=== PATIENT | female | born 1930 | race Caucasian/White ===

== ENCOUNTER 2018-06-08 23:38 | Inpatient (IN) | payer MEDICARE, MEDICAID ==
--- NOTE | 2018-06-08 23:51 | ED Physician Chart ---
ED Chief Complaint/HPI - Patient Information Date Seen:: 06/08/18 Time Seen:: 23:40 Chief Complaint:: refusing care History of Present Illness:: Condition at her extended care facility has been refusing to shower and is selective in the medication she takes. She is also been exhibiting aggressive behavior. Historian:: Patient Review:: Transfer documents Reviewed ED Review of Systems - Review of Systems General/Constitutional: No fever, No chills, No weight loss, No weakness, No diaphoresis, No edema, No loss of appetite Skin: No skin lesions, No rash, No bruising Head: No headache, No light-headedness Eyes: No loss of vision, No pain, No diplopia ENT: No earache, No nasal drainage, No sore throat, No tinnitus Neck: No neck pain, No swelling, No thyromegaly, No stiffness, No mass noted Cardio Vascular: No chest pain, No palpitations, No PND, No orthopnea, No edema Pulmonary: No SOB, No cough, No sputum, No wheezing GI: No nausea, No vomiting, No diarrhea, No pain, No melena, No hematochezia, No constipation, No hematemesis G/U: No dysuria, No frequency, No hematuria Musculoskeletal: No bone or joint pain, No back pain, No muscle pain Endocrine: No polyuria, No polydipsia Psychiatric: No prior psych history, No depression, No anxiety, No suicidal ideation Hematopoietic: No bruising, No lymphadenopathy Allergic/Immuno: No urticaria, No angioedema Neurological: No syncope, No focal symptoms, No weakness, No paresthesia, No headache, No seizure, No dizziness, No confusion, No vertigo ED Past Medical History - Past Medical History Past Medical History: CAD, Asthma/COPD, PUD/GERD, Thyroid disorder, Dementia, Other (hypothyroidism) Family History: Other (unavailable) Social History: Care Facility Surgical History: other (unknown) Psychiatricy History: Dementia ED Physical Exam - Physical Examination General/Constitutional: Awake, Well-developed, well-nourished, Alert, No distress Head: Atraumatic Eyes: Lids, conjuctiva normal, PERRL Skin: Nl inspection, No rash, No skin lesions, No ecchymosis ENMT: External ears, nose nl Other ENMT comments:: Poor dental hygiene Neck: No nuchal rigidity Respiratory: Nl effort/Exclusion, Clear to Auscultation, No Wheeze/Rhonchi/Rales Cardio Vascular: RRR, No murmur, gallop, rubs, NL S1 S2 GI: No tenderness/rebounding/guarding, No organomegaly, No hernia, Normal BS's Extremities: Normal digits & nails Neuro/Psych: No focal deficits ED Labs/Radiology/EKG Results - Lab Results Comments:: Abnormal Lab Results 06/09/18 06/09/18 00:10 00:10 WBC 7.9 RBC 4.54 Hgb 13.2 Hct 40.2 L MCV 88.6 MCH 29.1 MCHC Differential 32.8 RDW 12.3 Plt Count 182 MPV 9.7 Neutrophils % 69.6 Lymphocytes % 18.3 L Monocytes % 9.8 Eosinophils % 2.2 Basophils % 0.1 Sodium 139 Potassium 3.9 Chloride 102 Carbon Dioxide 29.0 Anion Gap 11.9 BUN 14 Creatinine 0.6 Est GFR ( Amer) TNP Est GFR (Non-Af Amer) TNP BUN/Creatinine Ratio 23.3 Glucose 105 Calcium 9.9 Total Bilirubin 1.6 H AST 12 L ALT 9 Alkaline Phosphatase 52 Total Protein 6.7 Albumin 3.7 Globulin 3.0 Albumin/Globulin Ratio 1.2 Triglycerides 69 Cholesterol 130 LDL Cholesterol Direct 78 HDL Cholesterol 49 - Radiology Results Results: Abnormal Lab Results 06/09/18 00:10 WBC 7.9 RBC 4.54 Hgb 13.2 Hct 40.2 L MCV 88.6 MCH 29.1 MCHC Differential 32.8 RDW 12.3 Plt Count 182 MPV 9.7 Neutrophils % 69.6 Lymphocytes % 18.3 L Monocytes % 9.8 Eosinophils % 2.2 Basophils % 0.1 - EKG Interpretations Rate & Rhythm: normal sinus rhythm with a rate of 79 Henderson: normal Comments:: 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
[2018-06-09 00:26] LABS: % BASOPHILS 0.1 % (0.0-2.0); EOSINOPHILE ABSOLUTE 0.2 Th/cmm (0.1-0.4); HEMOGLOBIN 13.2 gm/dL (12-16); MEAN PLATELET VOLUME 9.7 fl
[2018-06-09 00:28] LABS: % EOSINOPHILS 2.2 % (0.0-5.0); % LYMPHOCYTES 18.3 % (20.0-50.0); % MONOCYTES 9.8 % (2.0-10.0); % NEUTROPHILS 69.6 % (40.0-80.0); HEMATOCRIT 40.2 % (41.0-60); LYMPHOCYTE ABSOLUTE 1.4 Th/cmm (1.5-3.0); MEAN CELL VOLUME 88.6 fl (81-100); MEAN CORPUSCULAR HEMOGLOBIN 29.1 pg (27.0-31.0); MEAN CORPUSCULAR HGB CONC 32.8 pg (28.0-36.0); MONOCYTE ABSOLUTE 0.8 Th/cmm (0.3-1.0); NEUTROPHILE ABSOLUTE 5.5 Th/cmm (1.8-8.0); PLATELET COUNT 182 Th/cmm (150-400); RED BLOOD COUNT 4.54 Mil/cmm (3.80-5.20); RED CELL DISTRIBUTION WIDTH 12.3 % (11.5-20.0); WHITE BLOOD COUNT 7.9 Th/cmm (4.8-10.8)
[2018-06-09 00:37] LABS: ALB/GLOB RATIO 1.2 (1.0-1.8); ALBUMIN 3.7 gm/dL (3.7-5.3); ALKALINE PHOSPHATASE 52 U/L (34-104); ANION GAP 11.9 (7.0-16.0); BILIRUBIN,TOTAL 1.6 mg/dL (0.3-1.0); BUN - UREA NITROGEN 14 mg/dL (7-25); CALCIUM SERUM 9.9 mg/dL (8.6-10.3); CHLORIDE 102 mEq/L (98-107); CHOLESTEROL 130 mg/dL (<200); CREATININE - SERUM 0.6 mg/dL (0.6-1.2); GLUCOSE 105 mg/dL (70-105); HDL -HIGH DENSITY LIPOPROTEIN 49 mg/dL (23-92); POTASSIUM SERUM 3.9 mEq/L (3.5-5.1); SGOT 12 U/L (13-39); SGPT/ALT 9 U/L (7-52); SODIUM SERUM 139 mEq/L (136-145); TOTAL PROTEIN,SERUM 6.7 gm/dL (6.0-8.3); TRIGLYCERIDES 69 mg/dL (<150)
[2018-06-09] MEDS ORDERED: Maalox 30 mL Cup PO PRN (14:11)
[2018-06-09] MEDS ORDERED: Albuterol/Ipratropium Neb 3 ML AERS HHN PRN (19:28)
--- NOTE | 2018-06-10 03:46 | Psychiatric Evaluation ---
DATE OF SERVICE: 06/09/2018 PSYCHIATRIC EVALUATION IDENTIFYING DATA: The patient is an 87-year-old woman, resident of a [facility]. Information obtained by directly interviewing the patient as well as reviewing the admission papers. JUSTIFICATION OF HOSPITALIZATION: The patient is admitted here on a voluntary basis in view of her acute agitation. CHIEF COMPLAINT: "I don't know, you tell me." HISTORY OF PRESENT ILLNESS: This is the first psychiatric hospitalization to [facility] for this patient who is reported to have been agitated and has been screaming and yelling and hence the patient has to be admitted over here for stabilization. Staff was spoken to. The patient is interviewed and feeling the patient is primarily Mauritian speaking and has not been able to provide much of information, but has been getting easily irritable and angry. The patient's sleep and appetite prior to the hospitalization are reported to be very poor. Coping skills are also noted to be very poor. Review of the chart indicated that the patient has not been on any psychotropic medications and the patient at the time of the evaluation has been getting easily upset. PAST PSYCHIATRIC HISTORY: None. MEDICAL HISTORY: Physical examination is requested to be done by Dr. Lua. SUBSTANCE ABUSE HISTORY: None. PHYSICAL OR SEXUAL ABUSE HISTORY: None. LEGAL PROBLEMS: None at this time. STRENGTH AND ASSETS: The patient is motivated. MENTAL STATUS EXAMINATION: The patient is an 87-year-old woman looking her stated age. Coping skills at this time are noted to be very poor. Insight and judgment are also noted very much impaired. The patient has been having difficult time to cope with the stress. The patient is paranoid. The patient has short-term as well as long-term memory deficits. The patient is reporting that she has not been able to sleep and patient ____ on consultation, noted to be poor. The patient's short and long-term are also noted to be very poor. The patient's behavior is likely a danger to others. DIAGNOSTIC IMPRESSION: AXIS I: Psychotic disorder, not otherwise specified. IB: Dementia and behavioral change, secondary trait. AXIS II: None. AXIS III: As per Dr. Lua. IMMEDIATE TREATMENT PLAN: The patient is going to be observed on inpatient unit, provided with supportive psychotherapy. The patient is going to be closely monitored. Encouraged to verbalize the concerns rather than to act out. Once stabilized, [facility] basis. JOB# [id number]
[2018-06-10] MEDS: Pantoprazole 40 mg EC Tab PO SCH (06:34)
[2018-06-10] MEDS: Levothyroxine 0.1 Mg Tab PO SCH (06:34)
--- NOTE | 2018-06-10 18:45 | Consultation ---
DATE OF CONSULTATION: 06/10/2018 REFERRING PHYSICIAN: Opal Woodward M.D. TYPE OF CONSULTATION: Psychology. HISTORY OF PRESENT ILLNESS: The patient is an 87-year-old female. The patient is a resident of [facility]. The patient is being admitted due to acute agitation. Upon interview, the patient reports that she does not know why she is being hospitalized. The following is by record review. The patient was reported to have had screaming and yelling episodes and had become very agitated according to the staff at the patient's facility. The patient is primarily Upper Sorbian speaking and a Upper Sorbian speaking staff member was present to assist in interpretation. The patient seems to be confused and is not answering the questions relevantly according to the interpreter deaf. The patient denied any suicidal ideation, plan or intention. The patient seems to be easily upset and frustrated. PAST MEDICAL HISTORY: Please see history and physical by Dr. Lua. PAST PSYCHIATRIC HISTORY: Records are unavailable. Details are unknown. SUBSTANCE ABUSE HISTORY: The patient did not answer these questions. PSYCHOSOCIAL HISTORY: The patient did not answer questions about occupational or educational history or alevism affiliation. She did not answer questions about history or physical or sexual abuse or current legal problems. The patient did not answer questions about family members involved in her care. MENTAL STATUS EXAMINATION: The patient appears to be her stated age. Attitude is guarded and generally dismissive. Eye contact is fair to poor. Speech is spontaneous. Mood is frustrated and irritable. Affect is mood congruent. The patient denied any suicidal ideation, plan, or intention. She denied any auditory or visual hallucinations. There is evidence of some paranoid ideation. The patient's behavior is easily agitated. Impulse control is inadequate. Concentration is poor. The patient did not participate in the memory assessment. Immediate memory and short term memory appear to be impaired. Sensorium is alert and oriented to self only. The patient did not participate in the interpretation of proverbs. Insight is impaired. Judgment is compromised. DIAGNOSTIC IMPRESSION: AXIS I: 1. Psychotic disorder, not otherwise specified. 2. Dementia with behavioral disturbance. AXIS II: Deferred. AXIS III: Per Dr. Lua. TREATMENT PLAN: The patient has been seen by Dr. Woodward for psychiatric evaluation and for the management of the patient's psychotropic medications. We will provide supportive psychotherapy to include reality orientation, differentiation, and integration. We will provide limit setting and de-escalation. We will provide stress management to assist the patient in increasing her frustration tolerance. We will provide motivational enhancement for the patient to become compliant and stay compliant with all aspects of her care and treatment. We will encourage the patient to verbalize her concerns versus acting out and to also be able to demonstrate emotional and self-regulation prior to her discharge. Thank you, Dr. Woodward, for this consult and the opportunity to participate in this patient's care. JOB# [id number] LATOYA
--- NOTE | 2018-06-10 20:10 | History & Physical ---
ADMIT DATE: 06/09/2018 INTERNAL MEDICINE CONSULTATION HISTORY OF PRESENT ILLNESS: The patient is an 87-year-old patient of mine me being the PCP. MEDICAL PROBLEMS: Include COPD, hypothyroid, coronary artery disease, peptic ulcer disease, gastritis, arthritis, osteoporosis, dementia. SOCIAL HISTORY: No smoking or alcohol use. OBSTETRIC HISTORY: P2+0, menses are postmenopausal. REVIEW OF SYSTEMS: No vomiting or diarrhea, no melena, no hematochezia. PHYSICAL EXAMINATION: GENERAL: Elderly female, in obvious respiratory distress. VITAL SIGNS: Include a blood pressure 140/80, heart rate 80, respiration rate of 18. SKIN: Show no cellulitis. HEENT: Normal conjunctivae. NECK: Supple. LUNGS: Show occasional rhonchi, occasional crepitation, no bronchial breathing. HEART: First and second heart sound normal. ABDOMEN: Soft, bowel sounds present. EXTREMITIES: Show arthritis. NEUROLOGIC: The patient has dementia. LABS: Include white count 7.9, hemoglobin 13.2, hematocrit 40.2, platelet count of 182. Sodium 139, potassium 3.9, chloride 102, bicarbonate 29, BUN 14, creatinine 0.6, blood sugar 105. LFTs are normal. ADMITTING MEDICAL DIAGNOSES: Chronic obstructive pulmonary disease, hypertension, no hypothyroidism, coronary artery disease, peptic ulcer disease, arthritis, osteoporosis. CURRENT MEDICATIONS: Include Mylanta, DuoNeb, levothyroxine. Rest of medicines as per psychiatrist. JOB# [id number]
--- NOTE | 2018-06-10 20:13 | Progress Notes ---
DATE: 06/10/2018 INTERNAL MEDICINE CONSULTATION FOLLOWUP SUBJECTIVE: The patient is an 87-year-old female. Current medical problems include COPD, hypothyroid, coronary artery disease, peptic ulcer disease, arthritis, osteoporosis. No new symptoms. OBJECTIVE: VITAL SIGNS: Stable. LUNGS: Show occasional rhonchi, occasional crepitation, no bronchial breathing. HEART: First and second heart sound normal. No gallop. Systolic present. ABDOMEN: Soft, bowel sounds present. EXTREMITIES: Show arthritis. NEUROLOGIC: The patient has dementia. PLAN: Continue current medical management. Psych consult reviewed. JOB# [id number]
--- NOTE | 2018-06-11 02:11 | Progress Notes ---
DATE: 06/10/2018 SUBJECTIVE: Staff was spoken to. The patient is interviewed. Mood is noted to be irritable. Affect is constricted. Insight and judgment are noted to be still impaired. Impulse control is noted to be poor. Coping skills are noted to be very poor. The patient is refusing to comply with the treatment. The patient is spoken to through some Wolof speaking interpreters, but the patient has been stating that she does not know what they are talking. The patient has been very resistive. ASSESSMENT: The patient is still psychotic and impulsive. PLAN: To continue the patient with supportive therapy and follow up. JOB# [id number]
[2018-06-11] MEDS: Pantoprazole 40 mg EC Tab PO SCH (06:33)
[2018-06-11] MEDS: Levothyroxine 0.1 Mg Tab PO SCH (06:33)
--- NOTE | 2018-06-11 10:16 | Progress Notes ---
DATE: 06/11/2018 INTERNAL MEDICINE CONSULTATION FOLLOWUP SUBJECTIVE: This is an 87-year-old female. Current medical problems include COPD, hypothyroidism, coronary artery disease, peptic ulcer disease, arthritis, osteoporosis. No new symptoms. OBJECTIVE: VITAL SIGNS: Stable. LUNGS: Show occasional rhonchi, occasional crepitation, no bronchial breathing. HEART: First and second heart sound normal. Systolic present. ABDOMEN: Soft. Bowel sounds are present and good. EXTREMITIES: Show arthritis. NEUROLOGIC: The patient has no focal deficit. Continue current medical management. Psych consult reviewed. JOB# [id number]
--- NOTE | 2018-06-11 12:16 | Progress Notes ---
DATE: 06/11/2018 SUBJECTIVE: Staff was spoken to. The patient is interviewed. Mood is noted to be irritable. Affect is constricted. Insight and judgment are very impaired. Impulse control is noted to be limited. Coping skills also to be limited. The patient has been having difficult time to cope with the stress. The patient is screaming and yelling and stating that she does not need any medication. The patient has been very paranoid, in view of that, it is decided to go with the Haldol and the patient refuses. Plan to give the medication IM. ASSESSMENT: The patient is still impulsive. PLAN: To continue the patient with the supportive therapy, I encouraged the patient to verbalize the concerns rather than to act out. JOB# [id number]
[2018-06-12] MEDS: Levothyroxine 0.1 Mg Tab PO SCH (06:40)
[2018-06-12] MEDS: Pantoprazole 40 mg EC Tab PO SCH (06:40)
[2018-06-13] MEDS: Levothyroxine 0.1 Mg Tab PO SCH ×3 (06:30→09:02)
[2018-06-13] MEDS: Pantoprazole 40 mg EC Tab PO SCH ×2 (06:30→06:37)
--- NOTE | 2018-06-13 08:06 | Progress Notes ---
DATE: 06/12/2018 INTERNAL MEDICINE CONSULTATION FOLLOWUP SUBJECTIVE: The patient is an 87-year-old female. Current medical problems include COPD, hypothyroidism, coronary artery disease, peptic ulcer disease, arthritis, osteoporosis. No new symptoms. OBJECTIVE: VITAL SIGNS: Stable. LUNGS: Show occasional rhonchi, occasional crepitation, no bronchial breathing. HEART: First and second heart sound normal. Systolic present. ABDOMEN: Soft. Bowel sounds are present and good. EXTREMITIES: Show arthritis. NEUROLOGICAL: The patient has dementia. PLAN: Continue current medical management. Psych consult reviewed. JOB# [id number]
--- NOTE | 2018-06-13 08:30 | Progress Notes ---
DATE: 06/12/2018 SUBJECTIVE: Staff was spoken to. The patient is interviewed. Mood is noted to be irritable. Affect is constricted. Insight and judgment at this time are noted to be still impaired. Impulse control is noted to be limited. The patient has been having difficult time to cope with the stress. The patient has been reluctant to comply with the medication, but with detailed explanation the patient has been willing to take the medication. No side effects to the medications are noted at this time. PLAN: To closely monitor the patient and followup. JOB# [id number]
--- NOTE | 2018-06-13 16:03 | Progress Notes ---
DATE: 06/13/2018 SUBJECTIVE: Staff was spoken to. The patient is interviewed. Mood is noted to be less irritable today. Insight and judgment noted to be improving. Impulse control seems to be fair. No side effects to the medications are noted. The patient, however, is noted to be demented and needs to be redirected when needs to take the medications. The patient has no insight into her illness. ASSESSMENT: The patient is still impulsive, aggressive behavior has been, however, coming down. PLAN: To continue the patient with the current medications and followup. JOB# [id number]
--- NOTE | 2018-06-13 21:26 | Progress Notes ---
DATE: 06/13/2018 INTERNAL MEDICINE CONSULTATION FOLLOWUP SUBJECTIVE: The patient is an 87-year-old female. Current medical problems include COPD, hypothyroidism, coronary artery disease, peptic ulcer disease, gastritis, arthritis, and osteoporosis. No new symptoms. OBJECTIVE: VITAL SIGNS: Stable. LUNGS: Show occasional rhonchi, occasional crepitation. No bronchial breathing. HEART: First and second heart sounds normal. Systolic present. ABDOMEN: Soft, bowel sounds present. EXTREMITIES: Show arthritis. NEUROLOGIC: The patient has no focal motor deficit. PLAN: Continue current medical management. Psych consult reviewed. JOB# [id number]
--- NOTE | 2018-06-14 01:55 | Progress Notes ---
DATE: 06/12/2018 SUBJECTIVE: The patient is seen and interviewed. The patient presents as irritable. The patient has poor insight. Impulse control continues to be problematic. The patient is having a difficult time coping. The staff reports the patient has been intermittently refusing medication. OBJECTIVE: Mood irritable. Affect constricted. Thought process shows to be confused. The patient denies hallucinations or delusions. The patient's behavior has been intermittently noncompliant with care and more specifically the patient's medication protocol. ASSESSMENT AND PLAN: We provided remotivation for the patient to become compliant to stay compliant with all aspects of care and treatment. We encouraged the patient to be able to accept the patient's current circumstances. We provided stress management to increase the patient's frustration tolerance. We continued to encourage the patient to demonstrate and self regulation. We will follow up in 2 to 3 days to continue present treatment. JOB# [id number] [email or web address]
[2018-06-14] MEDS: Levothyroxine 0.1 Mg Tab PO SCH (06:33)
[2018-06-14] MEDS: Pantoprazole 40 mg EC Tab PO SCH (06:33)
--- NOTE | 2018-06-14 22:43 | Progress Notes ---
DATE: 06/14/2018 PSYCHIATRIC PROGRESS NOTE SUBJECTIVE: Staff was spoken to. The patient is interviewed. Mood is noted to be dysphoric. The patient is isolative and withdrawn. Insight and judgment are noted to be still impaired. Impulse control seems to be improving. Seroquel that is being offered at 25 mg at bedtime. No major behavioral problems are reported today. ASSESSMENT: The patient is still paranoid. PLAN: To continue the patient with the supportive therapy and followup. JOB# [id number]
[2018-06-15] MEDS: Levothyroxine 0.1 Mg Tab PO SCH (06:31)
[2018-06-15] MEDS: Pantoprazole 40 mg EC Tab PO SCH (06:31)
--- NOTE | 2018-06-15 18:15 | Progress Notes ---
DATE: 06/15/2018 SUBJECTIVE: The patient is seen and interviewed. Mood is dysphoric. The patient appears to be withdrawn. The patient stated that she is taking her medication; however, the patient still believes that people are against her. Paranoid ideation persists. The staff reports no major behavioral problems and that the patient is generally compliant with her care and treatment. OBJECTIVE: Mood: dysthymic. Affect: mood congruent. The patient's behavior is isolative and withdrawn. The patient denied any delusions or hallucinations. The patient is generally compliant with her care and treatment plan. ASSESSMENT AND PLAN: The patient continues to exhibit paranoid ideation. We will continue to provide reality orientation, differentiation, and integration. We will provide remotivation for the patient to stay compliant with all aspects of her care and treatment. We will provide coping strategies for phase of life issues as well as chronic severe mental illness. We will follow up in 2 to 3 days to continue present treatment. JOB# [id number] LATOYA
--- NOTE | 2018-06-15 23:16 | Progress Notes ---
DATE: 06/15/2018 INTERNAL MEDICINE CONSULTATION FOLLOWUP SUBJECTIVE: The patient is an 87-year-old female. Current medical problems include COPD, hypertension, coronary artery disease, peptic ulcer disease, gastritis, arthritis, osteoporosis. No new symptoms. OBJECTIVE: VITAL SIGNS: Stable. LUNGS: Show occasional rhonchi, occasional crepitation, no bronchial breathing. HEART: First and second heart sound normal. Systolic present. ABDOMEN: Soft. Bowel sounds are present and good. EXTREMITIES: Show arthritis. NEUROLOGIC: The patient has dementia. No new complaint. Continue current medical management. Psych consult reviewed. JOB# [id number]
--- NOTE | 2018-06-16 00:45 | Progress Notes ---
DATE: 06/15/2018 PSYCHIATRIC PROGRESS NOTE SUBJECTIVE: Staff was spoken to. The patient is interviewed. Mood is noted to be less irritable. The patient has started to participate in the groups. Insight and judgment are noted to be still impaired. Impulse control seems to be improving. The patient is not able to care for self and she is not able to decide for herself what she needs to do. The patient needs to be encouraged to comply with the treatment. ASSESSMENT: At this time, the patient is still presenting as a threat to self and others. PLAN: To continue the patient with supportive therapy and follow up. JOB# [id number]
[2018-06-16] MEDS: Levothyroxine 0.1 Mg Tab PO SCH (06:37)
[2018-06-16] MEDS: Pantoprazole 40 mg EC Tab PO SCH (06:37)
--- NOTE | 2018-06-16 20:06 | Progress Notes ---
DATE: 06/16/2018 INTERNAL MEDICINE CONSULTATION SUBJECTIVE: The patient is an 87-year-old female with past medical history of COPD, hypothyroidism, peptic ulcer disease, gastritis, arthritis, osteoporosis. OBJECTIVE: VITAL SIGNS: Stable. LUNGS: Clear. HEART: First and second heart sounds are normal. ABDOMEN: Soft. Bowel sounds are good. EXTREMITIES: Show arthritis. NEUROLOGIC: The patient has dementia. PLAN: Continue current medical management. Psych consult reviewed. JOB# [id number]
--- NOTE | 2018-06-17 01:47 | Progress Notes ---
DATE: 06/16/2018 SUBJECTIVE: Staff was spoken to. The patient is interviewed. Mood is noted to be anxious. Affect is appropriate. Insight and judgment are improving. Impulse control seems to be improving. The patient, however, with the great difficulty has been willing to comply with the medications. No side effects to the medications are noted so far. ASSESSMENT: The patient is still paranoid. PLAN: To continue the patient with the current medications and follow. JOB# [id number]
[2018-06-17] MEDS: Levothyroxine 0.1 Mg Tab PO SCH (06:50)
[2018-06-17] MEDS: Pantoprazole 40 mg EC Tab PO SCH (06:50)
--- NOTE | 2018-06-18 00:32 | Progress Notes ---
DATE: 06/17/2018 SUBJECTIVE: The patient is seen and interviewed. The patient presents as somewhat anxious and patient is speaking Upper Sorbian only. This movie writer requested the presence of a Upper Sorbian speaking CAMPGROUND CARETAKER as well as the charge nurse to be able to assist in interpretation. The staff indicates the patient's impulse control is improving; however, the patient is intermittently compliant with the medications. OBJECTIVE: Mood anxious and frustrated. Affect, mood congruent and reactive. Thought process shows to be confused at times and tangential; however, the patient is able to respond to cognitive redirection and understand the staff. The patient denied any auditory or visual hallucinations or delusions. The patient's behavior is less impulsive. ASSESSMENT AND PLAN: There is some paranoid ideation still present. The patient is having difficulty trusting the staff as well as the providers and is reluctant to follow through with some of the treatment goals and protocols. We provided remotivation for the patient to become compliant and stay compliant with all aspects of her care and treatment. We provided coping strategies for phase of life issues. We encouraged the patient to follow through with staff direction and be able to demonstrate emotional and self-regulation prior to her discharge. We will follow up in 2-3 days to continue present treatment if the patient remains admitted on the unit. JOB# [id number] LATOYA
--- NOTE | 2018-06-18 00:51 | Progress Notes ---
DATE: 06/17/2018 SUBJECTIVE: Staff was spoken to. The patient is interviewed. Mood is noted to be less irritable. Affect is appropriate. Not suicidal or homicidal. The patient has been on and off with regards to the compliance with the medications. No major behavioral problems are noted. Insight and judgment are noted to be still impaired. Coping skills are noted to be, however, improving. Sleep and appetite are also noted to be fair. No side effects to the medications are noted. ASSESSMENT: The patient's impulsivity is coming under control. PLAN: To continue the patient with the supportive therapy and follow up. JOB# [id number]
--- NOTE | 2018-06-18 00:53 | Progress Notes ---
DATE: 06/17/2018 SUBJECTIVE: The patient is an 87-year-old female. Current medical problems include COPD, hypothyroidism, coronary artery disease, peptic ulcer disease, gastritis, arthritis, osteoporosis. No new symptoms. OBJECTIVE: VITAL SIGNS: Stable. LUNGS: Show occasional rhonchi, occasional crepitation, no bronchial breathing. HEART: First and second heart sounds are normal. Systolic present. ABDOMEN: Soft. Bowel sounds good. EXTREMITIES: Show arthritis. NEUROLOGIC: The patient has no focal deficit. Continue current medical management. Awaiting discharge planning. JOB# [id number]
[2018-06-18] MEDS: Pantoprazole 40 mg EC Tab PO SCH (06:38)
[2018-06-18] MEDS: Levothyroxine 0.1 Mg Tab PO SCH (06:38)
--- NOTE | 2018-06-18 21:01 | Progress Notes ---
DATE: 06/18/2018 SUBJECTIVE: Staff was spoken to. The patient is interviewed. Mood is noted to be anxious. Affect is appropriate. The patient is not suicidal or homicidal. Insight and judgment are noted to be improving. Impulse control seems to be fair. Coping skills are also noted to be fair. The patient is willing to comply with the treatment and hence it is decided to discharge the patient today for followup on an outpatient basis. [facility]# [id number]
== END 2018-06-18 13:45 | DRG 885 ==
LOC: ER 23:38 → GERO 06-09 07:50
PROVIDERS: ADMIT Psychiatry & Neurology Psychiatry; ATTEND Psychiatry & Neurology Psychiatry
DX: F29 Unspecified psychosis not due to a substance or known physiological condition (principal); F03.91 Unspecified dementia, unspecified severity, with behavioral disturbance; J44.9 Chronic obstructive pulmonary disease, unspecified; I25.10 Atherosclerotic heart disease of native coronary artery without angina pectoris; M81.0 Age-related osteoporosis without current pathological fracture; K27.9 Peptic ulcer, site unspecified, unspecified as acute or chronic, without hemorrhage or perforation; M19.90 Unspecified osteoarthritis, unspecified site; K21.9 Gastro-esophageal reflux disease without esophagitis; E03.9 Hypothyroidism, unspecified; I25.2 Old myocardial infarction
CPT/HCPCS: 36415-UA; 80053-TC; 80061-TC; 83036-90; 84443-TC; 85025-TC; 86592-TC; 93005; 94760; Z7610